=== PATIENT | male | born 1945 | race Caucasian/White ===

== ENCOUNTER 2019-10-04 13:55 | Outpatient (CLI) | payer MEDICARE, OTHER, SELFPAY ==
--- NOTE | 2019-10-04 14:12 | XR_ITS ---
WS: [id number] Right shoulder, 3 views, today Clinical Data: ACUTE PAIN OF RIGHT SHOULDER Comparison: None. Findings: No fractures or dislocations are seen. The AC joint is normal. The adjacent right clavicle, right sca pula and ribs are normal. There is soft tissue calcification over the right greater tuberosity. This calcification may represen t calcific bursitis and/or tendinitis. Calcific bursitis or tendinitis of the right greater tuberosity. XR/XR shoulder RT min 2V* [id number] Impression:
--- NOTE | 2019-10-04 14:12 | XR_ITS ---
WS: [id number] Right arm and humerus, 2 views, 10/04/2019 Clinical Data: RIGHT ARM PAIN Comparison: None. Findings: No fractures or dislocations are seen. The shaft of the humerus is intact. As calcification over the right greater tuberosity which probably represents calcific bursitis or tendinitis. The visualized e lbow is unremarkable. Probable calcific tendinitis or bursitis over right greater tuberosity. XR/[place] [id number] Impression:
== END 2019-10-04 13:56 | disposition home or self-care (01) ==
LOC: RAD 14:04
PROVIDERS: PCP Registered Nurse; Visit Provider Registered Nurse
DX: M79.601 Pain in right arm (principal); M25.511 Pain in right shoulder
CPT/HCPCS: 73030; 73060